=== PATIENT | female | born 1955 | race Caucasian/White ===

== ENCOUNTER 2016-08-15 08:20 | Observation (INO) | payer OTHER ==
[~2016-08-15] VITALS: Ht 152.4 cm; Wt 59.2 kg
[2016-08-15 08:28] VITALS: Ht 152.4 cm; Wt 59.2 kg
[2016-08-15] MEDS ORDERED: LEVO75TA5 PO (09:18)
[2016-08-15] MEDS ORDERED: FOLI-49 PO (09:18)
[2016-08-15] MEDS ORDERED: CALC500T91 PO (09:18)
[2016-08-15] MEDS ORDERED: NAPR-688 PO (09:19)
[2016-08-15] MEDS ORDERED: GABA300C16 PO (09:19)
[2016-08-15] MEDS ORDERED: OMEP20CA16 PO (09:20)
[2016-08-15] MEDS ORDERED: ALEN70TA30 PO (09:20)
[2016-08-15] MEDS ORDERED: HYD25 PO (09:20)
--- NOTE | 2016-08-15 09:22 | RADRPT ---
PROCEDURE: Chest Radiograph. CLINICAL INDICATION: Abdominal pain TECHNIQUE: Single frontal chest radiograph. COMPARISON: None available FINDINGS: The cardiomediastinal silhouette is within normal limits. No infiltrate or effusion is seen. Th e bones are intact. IMPRESSION: 1. Unremarkable chest radiograph. RPTAT: KK .Ashok Madrid MD, MD Date Time Electronically viewed and signed by .Ashok Madrid MD, on 08/15/2016 09:22 .B/
[2016-08-15 09:35] LABS: ADD UMIC YES; URINE BILIRUBIN (Dip) NEGATIVE (NEGATIVE); URINE BLOOD (Dip) 2+ (NEGATIVE); URINE COLOR LT. YELLOW (YELLOW); URINE GLUCOSE (Dip) NEGATIVE (NEGATIVE); URINE KETONES (Dip) NEGATIVE (NEGATIVE); URINE LEUKOCYTE ESTERASE (Dip) NEGATIVE (NEGATIVE); URINE NITRITE (Dip) NEGATIVE (NEGATIVE); URINE TOTAL PROTEIN (Dip) NEGATIVE (NEGATIVE); URINE UROBILINOGEN (Dip) 0.2 E.U./dL (0.1-1.0)
[2016-08-15 09:39] LABS: BASOPHILS % 0.5 % (0.0-2.0); EOSINOPHILS # 0.1 10^3/ul (0.0-0.5); HEMATOCRIT 32.1 % (37.0-47.0); HEMOGLOBIN 10.6 g/dl (12.0-16.0); LYMPHOCYTES % 12.5 % (15.0-51.0); MEAN CORPUSCULAR HEMOGLOBIN 26.2 pg (29.0-33.0); MEAN CORPUSCULAR HGB CONC 32.9 g/dl (32.0-37.0); MEAN CORPUSCULAR VOLUME 79.6 fl (82.0-101.0); MEAN PLATELET VOLUME 8.3 fl (7.4-10.4); MONOCYTE # 0.5 10^3/ul (0.3-0.9); MONOCYTES % 6.7 % (0.0-11.0); NEUTROPHIL # 6.5 10^3/ul (1.6-7.5); NEUTROPHILS % 79.3 % (39.0-77.0); PLATELET COUNT 354 10^3/UL (140-440); RED BLOOD COUNT 4.04 10^6/ul (4.20-5.40); RED CELL DISTRIBUTION WIDTH 15.4 % (11.5-14.5); UNCORRECTED WBC 8.1 10^3/ul (4.8-10.8); WHITE BLOOD COUNT 8.1 10^3/ul (4.8-10.8)
[2016-08-15 09:45] LABS: CONDITION 1; LH ANALYZER COMMENTS 1
[2016-08-15 09:56] LABS: ALBUMIN 3.8 g/dl (3.3-4.9); CHLORIDE 104 mmol/L (97-110)
[2016-08-15 09:57] LABS: POTASSIUM 4.1 mmol/L (3.5-5.1); SODIUM 143 mmol/L (135-144)
[2016-08-15 09:59] LABS: ALBUMIN/GLOBULIN RATIO 0.84; ALKALINE PHOSPHATASE 94 IU/L (42-121); ANION GAP 17 (8-16); ASPARTATE AMINO TRANSFERASE 19 IU/L (15-46); BILIRUBIN,INDIRECT 0.1 mg/dl (0-1.1); BILIRUBIN,TOTAL 0.1 mg/dl (0.2-1.3); CARBON DIOXIDE 26 mmol/L (21-31); SQUAMOUS EPITHELIAL CELL,UR FEW; TOTAL PROTEIN 8.3 g/dl (6.1-8.1)
[2016-08-15 10:00] LABS: ALANINE AMINOTRANSFERASE 16 IU/L (13-69); BLOOD UREA NITROGEN 12 mg/dl (7-20); CALCIUM 9.5 mg/dl (8.4-10.2); GLUCOSE 116 mg/dl (70-220)
--- NOTE | 2016-08-15 10:08 | RADRPT ---
PROCEDURE: CT Abdomen and Pelvis without contrast. CLINICAL INDICATION: Abdominal pain TECHNIQUE: CT of the abdomen and pelvis was performed on a multi-detector scanner without IV contr ast. Coronal and sagittal images were reformatted from the axial data set. One or more of the foll owing dose reduction techniques were used: automated exposure control, adjustment of the mA and/or kV according to patient size, use of iterative reconstruction technique. CTDI = 7.95 mGy. DLP = 457 .56 mGy-cm. COMPARISON: None. FINDINGS: CT abdomen: The lung bases are clear. The heart size is normal. Small to mild amount of pericardial fluid is n oted. Liver, gallbladder, biliary tree, pancreas, spleen, adrenal glands and kidneys are unremarkab le. No urolithiasis or obstructive uropathy is identified. The stomach is grossly unremarkable. The aorta is of normal caliber. Aortic vascular calcifications are present. There is no retroperit hussein lymphadenopathy. The aubree hepatis region is clear. CT pelvis: No bowel obstruction, free intraperitoneal air or abscess is identified. Scattered colonic divertic aurelia are seen without diverticulitis. The appendix is well visualized and normal. There is no colit is. Urinary bladder is grossly unremarkable. Uterus is surgically absent. No pelvic mass, free fl uid or lymphadenopathy is identified. The surrounding osseous structures are remarkable for mild degenerative spondylosis of the spine. N o osteolytic or osteoblastic lesion is detected. IMPRESSION: 1. Nonspecific small to mild amount of pericardial fluid is present. 2. Scattered aortoiliac atherosclerotic calcifications are noted. 3. Scattered colonic diverticula are seen without diverticulitis. 4. Uterus is surgically absent. 5. No mass, lymphadenopathy, or focal acute inflammatory process is identified. RPTAT: EE .Augusto Kulkarni MD, MD Date Time Electronically viewed and signed by .Augusto Kulkarni MD, MD on 08/15/2016 10:07 .R/
[2016-08-15 10:16] LABS: TROPONIN-I < 0.010 ng/ml (0.00-0.12)
--- NOTE | 2016-08-15 11:06 | ERA ---
ER Documentation Chief Complaint Date/Time DATE: 08/15/16 TIME: 11:03 Chief Complaint ABDOMIONAL PAIN X 2 DAYS; NAUSEA HPI 61-year-old female presents to the emergency department for evaluation of abdominal pain. Patient is non-Georgian speaking. My history is mostly available for my conversations with her son who is a local physician at the hospital. Patient presents with approximately 2-3 days a nonspecific, visceral abdominal discomfort. She apparently has had similar type discomfort for some time now and has been losing weight. Over the last 2 days her nausea is gotten somewhat worse and she has been unable to tolerate oral intake. She has had no fevers chills, vomiting or diarrhea. She reports no urinary or gynecologic symptoms. ROS All systems reviewed and are negative except as per history of present illness. Medications Home Meds Reported Medications Alendronate Sodium* (Fosamax*) 70 Mg Tablet, 70 MG PO Q7D, #4 TAB 08/15/16 Omeprazole* (Omeprazole*) 20 Mg Capsule.dr, 20 MG PO AC BREAKFAST, #30 CAP 08/15/16 Hydrochlorothiazide* (Hydrochlorothiazide*) 25 Mg Tab, 25 MG PO DAILY, #30 TAB 08/15/16 Gabapentin* (Gabapentin*) 300 Mg Capsule, 300 MG PO QHS, #60 CAP 08/15/16 Naproxen* (Naproxen*) 500 Mg Tablet, 550 MG PO BID Y for PAIN, TAB 08/15/16 Levothyroxine Sodium* (Levothyroxine Sodium*) 75 Mcg Tablet, 75 MCG PO BEFORE BREAKFAST, #30 TAB 08/15/16 Folic Acid* (Folic Acid*) 1 Mg Tablet, 1 MG PO DAILY, TAB 08/15/16 Calcium Carbonate ([id number]) 500 Mg Tablet, 500 MG PO BID, TAB 08/15/16 Allergies Allergies: Coded Allergies: No Known Allergy (Unverified , 08/15/16) PMhx/Soc Medical and Surgical Hx: Unable to obtain Hx Alcohol Use: No Hx Substance Use: No Hx Tobacco Use: No Smoking Status: Never smoker FmHx Noncontributory for chief complaint Physical Exam Vitals Vital Signs Date Time Temp Pulse Resp B/P Pulse Ox O2 Delivery O2 Flow Rate FiO2 08/15/16 08:28 98.4 102 19 139/74 100 Physical Exam GENERAL: Patient is chronically ill-appearing but in no acute distress HEENT: Pupils equal, round, and reactive to light. EOMI. There is no scleral icterus. NECK: C-spine is soft and supple, there is no meningismus. There is no cervical lymphadenopathy. LUNGS: Clear to auscultation bilaterally. There are no rales, wheezes or rhonchi. HEART: Regular rate and rhythm, no murmurs, clicks, rubs or gallops. ABDOMEN: Soft, non-tender, non-distended. There are bowel sounds in all four quadrants. No rebound or guarding. EXTREMITIES: There is no peripheral cyanosis or edema. No focal swelling or erythema. NEURO: The patient moves all four extremities with 5/5 strength. Cranial nerves II - XII are intact. Normal gait. Alert and oriented SKIN: There is no apparent rash or petechiae. HEME/LYMPHATIC: There is no evidence of excessive bruising or lymphedema. PSYCHIATRIC: The patient does not appear anxious or depressed. Result Diagram: 08/15/1692908/15/1630 Results 24 hrs Laboratory Tests Test 08/15/16 09:30 Alanine Aminotransferase (ALT/SGPT) 16IU/L Albumin 3.8g/dl Albumin/Globulin Ratio 0.84 Alkaline Phosphatase 94IU/L Anion Gap 17 Aspartate Amino Transf (AST/SGOT) 19IU/L Basophils # 0.010^3/ul Basophils % 0.5% Blood Morphology Comment Blood Urea Nitrogen 12mg/dl Calcium Level 9.5mg/dl Carbon Dioxide Level 26mmol/L Chloride Level 104mmol/L Creatinine 0.60mg/dl Direct Bilirubin 0.00mg/dl Eosinophils # 0.110^3/ul Eosinophils % 1.0% Globulin 4.50g/dl Glucose Level 116mg/dl Hematocrit 32.1% Hemoglobin 10.6g/dl Indirect Bilirubin 0.1mg/dl Lipase 92U/L Lymphocytes # 1.010^3/ul Lymphocytes % 12.5% Mean Corpuscular Hemoglobin 26.2pg Mean Corpuscular Hemoglobin Concent 32.9g/dl Mean Corpuscular Volume 79.6fl Mean Platelet Volume 8.3fl Monocytes # 0.510^3/ul Monocytes % 6.7% Neutrophils # 6.510^3/ul Neutrophils % 79.3% Nucleated Red Blood Cells # 0.010^3/ul Nucleated Red Blood Cells % 0.0/100WBC Platelet Count 42404^3/UL Potassium Level 4.1mmol/L Red Blood Count 4.0410^6/ul Red Cell Distribution Width 15.4% Sodium Level 143mmol/L Total Bilirubin 0.1mg/dl Total Protein 8.3g/dl Troponin I < 0.010ng/ml Urine Bilirubin NEGATIVE Urine Clarity CLEAR Urine Color LT. YELLOW Urine Glucose NEGATIVE% Urine Hemoglobin 2+ Urine Ketones NEGATIVE Urine Leukocyte Esterase NEGATIVE Urine Microscopic RBC 2-5/HPF Urine Microscopic WBC NONE SEEN/HPF Urine Nitrite NEGATIVE Urine Specific [place] 1.015 Urine Squamous Epithelial Cells FEW Urine Total Protein NEGATIVE Urine Urobilinogen 0.2 E.U./dL Urine pH 6.0 White Blood Count 8.110^3/ul Procedures/MDM Patient was taken to a room, seen and evaluated. Comfort measures were initiated. Diagnostic tests were ordered and reviewed. 3 LEAD RHYTHM STRIP: Normal sinus rhythm without ectopy EK lead EKG reviewed by myself: Normal Sinus Rhythm Normal [place] and intervals No ST elevation, depression, or T wave inversion Impression: Normal EKG RADIOLOGY: reviewed with the radiologist CONSULTATION: I spoke with the patient's son. Patient's insurance hospitalist was notified for admission REEVALUATION: Patient is remained stable in the emergency room MEDICAL DECISION MAKIN-year-old female presents the emergency department for nonspecific abdominal pain. Her diagnostic tests confirms a significant microcytic anemia I am concerned given her history that there may be an underlying malignancy. Patient will be admitted to the hospital for further observation diagnostic workup and monitoring. Departure Diagnosis: Primary Impression: Abdominal pain Additional Impression: Anemia PREET EISENBERG Aug 15, 2016 11:06
[2016-08-15] MEDS ORDERED: SOD CHLORIDE 0.9% 250 ML IV ONE (11:30)
[2016-08-15] MEDS ORDERED: BISACODYL 10 MG SUPP PR PRN (12:00)
[2016-08-15] MEDS ORDERED: MAGNESIUM HYDROXIDE 30ML CUP PO PRN (12:00)
[2016-08-15] MEDS ORDERED: NACL 0.9% 3 ML SYG IV SCH (12:00)
[2016-08-15] MEDS ORDERED: HYDROCODONE/APAP (5/325) TAB PO PRN (12:00)
[2016-08-15] MEDS ORDERED: ACETAMINOPHEN 325 MG TAB PO PRN (12:00)
[2016-08-15] MEDS ORDERED: ONDANSETRON 4 MG INJ IV PRN (12:00)
[2016-08-15] MEDS ORDERED: morphine 2 MG INJ IV PRN (12:00)
[2016-08-15] MEDS ORDERED: DOCUSATE SODIUM 100 MG CAP PO PRN (12:00)
[2016-08-15 14:20] LABS: INR 1.12; PROTIME 14.4 Sec (12.2-14.2); PT RATIO 1.1
[2016-08-15 14:25] LABS: IRON 24 ug/dl (35-150)
[2016-08-15 14:35] LABS: TOTAL IRON BINDING CAPACITY 364 ug/dl (241-421)
[2016-08-15 15:02] LABS: FERRITIN 45.6 ng/ml (11.1-264.0)
[2016-08-15 16:00] LABS: THYROID STIMULATING HORMONE 2.98 MIU/L (0.465-4.680)
[2016-08-15] MEDS: SOD CHLORIDE 0.9% 1,000 ML IV SCH ×2 (16:16→21:34)
[2016-08-15] MEDS ORDERED: BISACODYL (EC) 5 MG TAB PO ONE (17:00)
[2016-08-15] MEDS ORDERED: PEG/ELECTROLYTES 4L BTL PO ONE (18:00)
--- NOTE | 2016-08-15 18:16 | RADRPT ---
PROCEDURE: CT cervical spine without contrast. CLINICAL INDICATION: Neck pain, rheumatoid arthritis TECHNIQUE: CT of the cervical spine without contrast was performed on a multidetector CT scanner, w ith multiplanar reformats. One or more of the following dose reduction techniques were used: Automa radha exposure control, adjustment in mA and / or kV according to patient size, use of iterative recon structive technique. CTDIvol = 17.4 mGy and DLP = 326.7 mGy-cm. COMPARISON: None available. FINDINGS: No fracture or dislocation is identified. There is straightening of the lordosis of the cervical sp ine. Alignment is intact. The vertebral bodies are maintained in height. There are degenerative changes at the atlantoaxial joints, greater anteriorly without erosive changes, significant pannus a djacent to the odontoid process, or widening of the atlantodental interval. Anterior spondylosis is also seen at C4-5 and C5-6. Noted are carotid atherosclerotic calcifications, as well as left apic al calcification with adjacent irregular opacity, likely post inflammatory/granulomatous. C2-3: The disc is maintained in height. There is a mild posterior disk osteophyte without central c anal stenosis identified. There is mild facet arthropathy without foraminal narrowing identified. C3-4: The disc is maintained in height. There is a mild posterior disk osteophyte with mild central canal stenosis. There is mild facet arthropathy without foraminal narrowing identified C4-5: The disc is maintained in height. There is a mild posterior disk osteophyte with mild central canal stenosis. There is mild facet arthropathy without foraminal narrowing identified. C5-6: The disc is maintained in height. There is mild posterior disk osteophyte with mild central c anal stenosis. There is mild facet arthropathy without foraminal narrowing identified. C6-7: The disc is maintained in height. There is a mild posterior disk osteophyte with mild centra l canal stenosis. There is mild facet arthropathy without foraminal narrowing identified. C7-T1: The disc is maintained in height. No disk bulge or herniation is seen. There is mild facet arthropathy. There is no central canal stenosis or foraminal narrowing. IMPRESSION: 1. Cervical spondylosis, without fracture/malalignment identified. 2. Multilevel mild central canal stenosis, outlined in detail above. RPTAT: VV .Pawan Gutierrez MD, MD Date Time Electronically viewed and signed by .Pawan Gutierrez MD, on 08/15/2016 18:16 .O/
--- NOTE | 2016-08-15 18:24 | HP ---
DATE OF ADMISSION: 08/15/2016 CHIEF COMPLAINT ON ADMISSION: Generalized weakness and weight loss. HISTORY OF PRESENT ILLNESS: This is a 61-year-old female with a history of rheumatoid arthritis, hy pothyroidism, status post total hysterectomy for uterine bleeding and status post thyroidectomy for multinodular goiter. Has been on Synthroid, who presented to the emergency department brought in by family with reported worsening generalized weakness and recent significant weight loss. The patien t herself is not fluently Moroccan speaking, but the history is obtained from her son and her . The patient does have rheumatoid arthritis. She has been battling joint pain. Recently, however , for the past 2 months she was noted to have progressive weight loss up to 20 pounds. She has been having increased generalized weakness and according to the at the bedside over the past few days. She has been significantly weak with decreased exercise tolerance. No fevers reported. No chest pain or shortness of breath; however, the patient again has decreased exercise tolerance. She has joint pain at most of her joints at this point. She is also complaining of neck pain with pain from the base of her neck going up the occipital area of her head and up to the frontal area. She also complains of some low back pain. She denies any nausea and vomiting, but does report decreased appetite. She was noted in the ER to have some macrocytic anemia. Her hemoglobin is at 10, howeve r, her MCV is in the 70s. She has been admitted to a medical/surgical bed on observation for gastro enterology evaluation in setting of macrocytic anemia and significant weight loss. I will also cont act rheumatology in order to see if the patient needs additional workup, but from the rheumatology s tandpoint done while inpatient and further recommendation. CAT scan of her neck is also ordered giv en her significant neck pain and decreased range of motion at the neck. ALLERGIES: NO KNOWN ALLERGIES. PAST MEDICAL HISTORY: 1. Rheumatoid arthritis. 2. Hypothyroidism status post total thyroidectomy for multinodular goiter. 3. Osteopenia. 4. Previous history of abnormal uterine bleeding, status post hysterectomy. PAST SURGICAL HISTORY: 1. Status post hysterectomy remotely. 2. Status post thyroidectomy remotely. FAMILY HISTORY: None. SOCIAL HISTORY: The patient does not smoke or drink alcohol. She lives with family. REVIEW OF SYSTEMS: Most of the assessment was done through the patient's son and . REVIEW OF SYSTEMS: Limited to the patient, but she is able to verbalize that she has pain at her noreen ints, both the small one the larger ones, and also significant neck pain with decreased range of mot ion. OUTPATIENT MEDICATIONS: 1. Gabapentin 300 mg p.o. at bedtime. 2. Naprosyn 550 mg p.o. b.i.d. 3. Calcium carbonate 500 mg p.o. b.i.d. 4. Hydrochlorothiazide 25 mg p.o. daily. 5. Omeprazole 20 mg p.o. daily. 6. Levothyroxine 75 mcg daily. 7. Folic acid 1 mg p.o. daily. 8. Fosamax 70 mg p.o. weekly. PHYSICAL EXAMINATION: VITAL SIGNS: Temperature is 98.4, heart rate of 91, respiratory rate 16, blood pressure 135/70. Th e patient is saturating 99% on room air. GENERAL: She is alert. She is oriented x4. She is primarily non-Moroccan speaking, but does unders tand questions and is able to answer some of the questions. is at the bedside is helping wi th translation. HEENT: Pupils are equally round and reactive to light. Extraocular muscles are intact. Anicteric sclerae, slightly pale. NECK: No JVD noted. No thyromegaly noted. She is status post thyroidectomy. HEART: Regular rate and rhythm. No murmur, rubs, or gallops. LUNGS: Clear to auscultation bilaterally. ABDOMEN: Soft, nontender, nondistended. Bowel sounds are present. EXTREMITIES: No edema, clubbing or cyanosis; however, the patient does have some of her joints are swollen, both on her feet, her ankle bilaterally. Some of her knuckles on her hands, wrist, elbow a nd on her spine exam, she does have tenderness to palpation along the cervical spine. She has decre ased range of motion while turning her head. She also complains of some tenderness on her lumbar sp ine area. NEUROLOGIC: Muscle strength is 5/5 upper and lower extremity, but exam is slightly limited by joint pain. LABORATORY DATA: White blood cell count is 8.1, hemoglobin 10.6, hematocrit 32.1, platelet count of 354. ESR came back at 95. Chemistry with a sodium of 143, potassium 4.1, chloride 104, bicarbonat e 26, BUN is 12, creatinine 0.60, glucose of 116, calcium 9.5, total bilirubin 0.1, AST 19, ALT 16. Troponin less than 0.010, total protein 8.3, albumin 3.8, lipase is 92. TSH 2.98, free T4 is pendi ng. Iron study with iron level is low at 24. TIBC of 364. Iron saturation 7, ferritin 45.5. INR is 1.12, PTT 34, PT 14.4. Urinalysis is grossly negative. EKG did show ELECTROCARDIOGRAM: Normal sinus rhythm, no acute ST or T-wave abnormalities. Echocardiogram is pending. RADIOLOGICAL DATA: Chest x-ray shows no infiltrate or effusion. Bones are intact. Cardiac silhoue tte is actually unremarkable. CAT scan of the abdomen and pelvis is showing nonspecific small to mild amount of pericardial fluid, scattered aortoiliac atherosclerotic calcifications, scattered colonic diverticula without divertic ulitis and status post hysterectomy, no masses, adenopathy, or acute inflammatory process identified . ASSESSMENT AND PLAN: This is a 61-year-old female with: 1. Generalized weakness, microcytic anemia, and significant weight loss over the past [address] Pavel Whittaker has been consulted from gastroenterology for a GI workup. Likely patient will need EGD, co lonoscopy as part of the workup. She is definitely iron deficient. Therefore, I will discussed wit h Dr. Whittaker. Also I will discuss with rheumatology. She may need IV iron supplementation. Ling garette to monitor H and H and given her history of rheumatoid arthritis I will discuss with rheumatolog y additional workup they would like us to do while the patient is inpatient. 2. Multiple joint pain along with neck pain. CAT scan of the C-spine is pending. ESR came back at 95. Again, patient with known other autoimmune arthritis. Will discuss with rheumatology addition al workup. Followup CT cervical spine results. I will check rheumatoid factor, also. 3. Hypothyroidism. Continue Synthroid. TSH is within normal, free T4 is pending. 4. Hypertension. The patient has been on hydrochlorothiazide. I will be holding it currently. We will hydrate her in setting of generalized weakness and revaluate her blood pressure. 5. Prophylaxis: Sequential compression devices to lower extremity for DVT prophylaxis, Protonix fo r GI prophylaxis. DISPOSITION: Follow up CT cervical spine results and gastroenterology recommendations. Also follow up on additional recommendations from rheumatology after we discussed the case. Dictated By: CELIA COOPER MD NK/CAITY Conf#: [id number] DID#: [id number] CC: CELIA COOPER MD;*EndCC*
[2016-08-15 19:25] VITALS: BP 135/65; RESP 20
[2016-08-15] MEDS: GABAPENTIN 300 MG CAP PO SCH (21:00)
--- NOTE | 2016-08-15 21:14 | CONS ---
DATE OF ADMISSION: 08/15/2016 DATE OF CONSULTATION: Dear Dr. Cooper: HISTORY OF PRESENT ILLNESS: I thank you for asking me to evaluate your patient. She is a 61-year-o ld female with a history of rheumatoid arthritis, hypothyroidism, status post hysterectomy for dysfu nctional uterine bleeding, status post thyroidectomy for multiple nodular goiter on Synthroid came t o the emergency room for generalized weakness and significant weight loss. The patient lost almost 20 pounds within the last 2 months and she has become dysfunctional. The patient is unable to ambul ate much and she feels profoundly weak. She has a vague history of abdominal discomfort for the las t few weeks. The patient has been taking Aleve for her arthritis for the last 1-1/2 to 2 months and she was on methotrexate injection also. No history of any gross GI bleeding, no melena, no hematoc hezia. Had a history of heartburn in the past and also nausea. ALLERGIES: NO KNOWN ALLERGIES. PAST MEDICAL HISTORY: Rheumatoid arthritis, hypothyroidism after thyroidectomy, osteopenia, hystere ctomy. PAST SURGICAL HISTORY: Hysterectomy and thyroidectomy. FAMILY HISTORY: None. SOCIAL HISTORY: Does not smoke or drink. REVIEW OF SYSTEMS: Otherwise negative. MEDICATIONS: All reviewed. She was on: 1. Gabapentin. 2. Naproxen. 3. Hydrochlorothiazide. 4. Omeprazole. 5. Levothyroxine. 6. Fosamax. PHYSICAL EXAMINATION: GENERAL: Alert, awake, not in distress. VITAL SIGNS: Stable. HEENT: Unremarkable. NECK: Supple. No thyromegaly, no lymphadenopathy. CARDIOVASCULAR: No murmur, gallop, or click. LUNGS: Clear. ABDOMEN: Benign. EXTREMITIES: No pedal edema. Homans sign negative. No clubbing, no cyanosis. NEUROLOGIC: Grossly within normal limits. MUSCULOSKELETAL: The patient has swollen proximal phalangeal joints of both hands. LABORATORY DATA: Her hematocrit was 32. ESR was elevated at 95. CMP was grossly within normal [place] its. MCV was low 79.6. Iron saturation was 7, ferritin level was 45. IMPRESSION: 1. Anemia, which is of mixed etiology, both iron deficiency and of anemia of chronic disease. 2. Weight loss of 20 pounds. 3. Vague abdominal discomfort. 4. Rheumatoid arthritis. 5. Status post hysterectomy. 6. Osteoporosis. 7. Hypothyroidism. 8. Mild hypertension. PLAN: At this point, is to proceed with EGD and colonoscopy to identify the cause of her anemia and also GI blood loss and abdominal discomfort. Rheumatology workup as per Dr. Cooper. Will continue a ll the medication other than NSAIDS. Once again, thank you for your referral. Dictated By: CRISTI GALAVIZ/NTS Conf#: [id number] DID#: [id number] CC: CELIA COOPER MD;*EndCC*
[2016-08-15] MEDS: CALCIUM CARBONATE 1.25 GM TAB PO SCH (21:17)
--- NOTE | 2016-08-15 22:26 | RADRPT ---
Echocardiogram Report Patient Name: MINDY SHUKLA Gender: Female Date: 1955 Study Date: 15-Aug-2016 Sales Advisor: Vishal Bone RDCS Location: [facility] Ref. Physician: REGINO COOPER Quality: Good Procedures: Transthoracic echocardiogram with complete 2D, M-Mode, and doppler examination. Indications: Evaluate Left Ventricular function. Pericardial Effusion. 2D/M Mode Doppler Measurement Value Normal Ranges Measurement Value Normal Ranges LVIDd 2D 4.2 3.5 - 5.6 cm AV Peak Morgan 1.7 m/sec LVIDs 2D 2.3 2.1 - 4.1 cm AV Peak PG 12.0 mmHg FS 2D 45.6 % LVOT Peak Morgan 1.2 m/sec LVPWd 2D 0.9 0.6 - 1.1 cm LVOT Peak PG 5.0 mmHg IVSd 2D 0.8 0.6 - 1.1 cm MV E Peak Morgan 0.9 m/sec IVS/LVPW 2D 1.0 MV A Peak Morgan 1.1 m/sec AoR Diam 2D 2.2 2.0 - 3.7 cm MV E/A 0.8 LA/Ao 2D 1 0 - 1 MV Decel Time 137 msec EDV 2D 74.6 cm3 MV E/A 0.8 ESV 2D 12.0 cm3 TR Peak Morgan 2.2 m/sec LA Dimen 2D 3.2 2.3 - 4.0 cm TR Peak PG 20.0 mmHg RVSP 23.0 mmHg Findings Left Ventricle: Normal left ventricular systolic function. Normal left ventricular cavity size. Normal left ventricular wall thickness. Ejection fraction is visually estimated at 65 %. Tissue Doppler/Mitral Doppler indices are consistent with impaired relaxation (Stage I diastolic dysfunction). Right Ventricle: Normal right ventricular size. Normal right ventricular systolic function. Left Atrium: The left atrium is normal in size. Right Atrium: The right atrium is normal in size. Mitral Valve: Mitral valve leaflets appear mildly thickened. Mild mitral annular calcification. Mild mitral valve regurgitation. Aortic Valve: Normal appearance of the aortic valve. No significant aortic stenosis or insufficiency. Tricuspid Valve: Normal appearance of the tricuspid valve. Estimated peak PA systolic pressure 23 mmHg. There is trace tricuspid regurgitation. Pericardium: Small pericardial effusion. Aorta: Normal aortic root. IVC: Normal size and normal respiratory collapse consistent with normal right atrial pressure. Conclusions Normal left ventricular systolic function. Normal left ventricular cavity size. Normal left ventricular wall thickness. Ejection fraction is visually estimated at 65 %. Tissue Doppler/Mitral Doppler indices are consistent with impaired relaxation (Stage I diastolic dysfunction). Normal right ventricular size. Normal right ventricular systolic function. The left atrium is normal in size. The right atrium is normal in size. Mild mitral valve regurgitation. No significant aortic stenosis or insufficiency. Estimated peak PA systolic pressure 23 mmHg. There is trace tricuspid regurgitation. Small pericardial effusion. Electronically Signed By: Gerald Coelho 15-Aug-2016 22:25:48 -0800 Patient Name: MINDY SHUKLA Study Date: 15-Aug-[id number]
[2016-08-16] VITALS (8 sets, daily range): BP systolic 95–154; BP diastolic 51–69; PULSE 86–91; RESP 16–20
[2016-08-16] MEDS: SOD CHLORIDE 0.9% 1,000 ML IV SCH ×3 (03:25→18:41)
[2016-08-16] MEDS: PANTOPRAZOLE (EC) 40 MG TAB PO SCH (06:00)
[2016-08-16 06:02] LABS: BASOPHILS % 0.6 % (0.0-2.0); EOSINOPHILS # 0.2 10^3/ul (0.0-0.5); EOSINOPHILS % 2.9 % (0.0-7.0); HEMATOCRIT 30.9 % (37.0-47.0); HEMOGLOBIN 10.1 g/dl (12.0-16.0); LYMPHOCYTES # 1.3 10^3/ul (0.8-2.9); LYMPHOCYTES % 17.9 % (15.0-51.0); MEAN CORPUSCULAR HEMOGLOBIN 26.1 pg (29.0-33.0); MEAN CORPUSCULAR HGB CONC 32.6 g/dl (32.0-37.0); MEAN CORPUSCULAR VOLUME 80.1 fl (82.0-101.0); MEAN PLATELET VOLUME 8.5 fl (7.4-10.4); MONOCYTE # 0.5 10^3/ul (0.3-0.9); MONOCYTES % 7.1 % (0.0-11.0); NEUTROPHIL # 5.2 10^3/ul (1.6-7.5); NEUTROPHILS % 71.5 % (39.0-77.0); PLATELET COUNT 309 10^3/UL (140-440); RED BLOOD COUNT 3.86 10^6/ul (4.20-5.40); RED CELL DISTRIBUTION WIDTH 15.4 % (11.5-14.5); UNCORRECTED WBC 7.3 10^3/ul (4.8-10.8); WHITE BLOOD COUNT 7.3 10^3/ul (4.8-10.8)
[2016-08-16 06:08] LABS: CONDITION 1; LH ANALYZER COMMENTS 1
[2016-08-16 06:10] LABS: ALBUMIN 3.4 g/dl (3.3-4.9)
[2016-08-16 06:13] LABS: ALBUMIN/GLOBULIN RATIO 0.8; BILIRUBIN,INDIRECT 0.1 mg/dl (0-1.1); BILIRUBIN,TOTAL 0.1 mg/dl (0.2-1.3); CREATININE 0.6 mg/dl (0.44-1.00); TOTAL PROTEIN 7.6 g/dl (6.1-8.1)
[2016-08-16 06:14] LABS: CALCIUM 9.1 mg/dl (8.4-10.2); MAGNESIUM 1.9 mg/dl (1.7-2.5); PHOSPHORUS 3.7 mg/dl (2.5-4.9)
[2016-08-16] MEDS: LEVOTHYROXINE 75 MCG TAB PO SCH (07:00)
[2016-08-16] MEDS: FOLIC ACID 1 MG TAB PO SCH (09:00)
[2016-08-16] MEDS: CALCIUM CARBONATE 1.25 GM TAB PO SCH ×2 (09:00→21:39)
[2016-08-16] MEDS ORDERED: PROPOFOL 20 ML ONE (12:00)
[2016-08-16] MEDS ORDERED: LIDOCAINE 2% (SDV) 5 ML INJ ONE (12:00)
[2016-08-16] MEDS ORDERED: MIDAZOLAM 1 MG/ML 2 ML INJ ONE (12:01)
[2016-08-16] MEDS ORDERED: MEPERIDINE 25 MG INJ IV PRN (12:30)
[2016-08-16] MEDS ORDERED: FENTAnyl 50 MCG/ML VIAL IV PRN (12:30)
[2016-08-16] MEDS ORDERED: DIPHENHYDRAMINE 50 MG INJ IV PRN (12:30)
[2016-08-16] MEDS ORDERED: METOCLOPRAMIDE 10 MG INJ IV PRN (12:30)
[2016-08-16] MEDS ORDERED: ONDANSETRON 4 MG INJ IV PRN (12:30)
--- NOTE | 2016-08-16 14:43 | PN ---
Date/Time of Note Date/Time of Note DATE: 08/16/16 TIME: 13:38 Assessment/Plan VTE Prophylaxis VTE Prophylaxis Intervention: SCD's Lines/Catheters IV Catheter Type (from Nrs): Peripheral IV Urinary Cath still in place: No Assessment/Plan Assessment/Plan 61-year-old female with: 1. Generalized weakness, microcytic anemia, and significant weight loss over the past [address] Whittaker's assistance S/p EGD and colonoscopy and ileal ulcer bx pending IV FE today and tomorrow D/c plan tomorrow if remains stable I have discussed case with Dr Rollins rheumatology and placed his consult note in chart, he will see patient as outpatient as all interventions he can offer form rheumatology standpoint are outpatient. 2. Multiple joint pain along with neck pain. CAT scan of the C-spine with no acute findings ESR 95 likely related to RA per Rheumatology. RF sent out 3. Hypothyroidism. Continue Synthroid. TFTS wnl. 4. Hypertension. off HCTZ while on IVF post colo prep Will resume at discharge if needed. Prophylaxis: Sequential compression devices to lower extremity for DVT prophylaxis, Protonix for GI prophylaxis. DISPOSITION: F/u pathology and IV fe today and tomorrow with d/c plan home tomorrow. Subjective 24 Hr Interval Summary Free Text/Dictation Patient doing well post EGD and colonoscopy this AM Awaiting final report Cervical spine CT with no acute findings Patient with no complaints this AM and labs pending IV fe ordered Ambulate Exam/Review of Systems Vital Signs Vitals Vital Signs Date Time Temp Pulse Resp B/P Pulse Ox O2 Delivery O2 Flow Rate FiO2 08/16/16 13:00 86 16 95/59 99 Room Air 08/16/16 12:39 98.0 Intake and Output 08/15/16 08/15/16 08/16/16 15:00 23:00 07:00 Intake Total 650 ml 1330 ml Balance 650 ml 1330 ml Exam Constitutional: alert, oriented, well developed Respiratory: clear to auscultation, normal air movement Cardiovascular: nl pulses, regular rate and rhythm Gastrointestinal: non-tender, soft Musculoskeletal: nl extremities to inspection Extremities: normal pulses, other (no edema, clubbing or cyanosis ) Neurological: PETROL TANKER DRIVER II-XII intact, nl mental status, nl speech, nl strength Results Result Diagram: 1/11/17 0530 1/11/17 0530 Results 24 hrs Laboratory Tests Test 08/15/16 17:00 08/16/16 05:30 Free Thyroxine 1.79 Alanine Aminotransferase (ALT/SGPT) 14 Albumin 3.4 Albumin/Globulin Ratio 0.80 Alkaline Phosphatase 85 Anion Gap 16 Aspartate Amino Transf (AST/SGOT) 14 L Basophils # 0.0 Basophils % 0.6 Blood Morphology Comment Blood Urea Nitrogen 8 Calcium Level 9.1 Carbon Dioxide Level 24 Chloride Level 108 Creatinine 0.60 Direct Bilirubin 0.00 Eosinophils # 0.2 Eosinophils % 2.9 Globulin 4.20 H Glucose Level 98 Hematocrit 30.9 L Hemoglobin 10.1 L Indirect Bilirubin 0.1 Lymphocytes # 1.3 Lymphocytes % 17.9 Magnesium Level 1.9 Mean Corpuscular Hemoglobin 26.1 L Mean Corpuscular Hemoglobin Concent 32.6 Mean Corpuscular Volume 80.1 L Mean Platelet Volume 8.5 Monocytes # 0.5 Monocytes % 7.1 Neutrophils # 5.2 Neutrophils % 71.5 Nucleated Red Blood Cells # 0.0 Nucleated Red Blood Cells % 0.0 Phosphorus Level 3.7 Platelet Count 309 Potassium Level 4.0 Red Blood Count 3.86 L Red Cell Distribution Width 15.4 H Sodium Level 144 Total Bilirubin 0.1 L Total Protein 7.6 White Blood Count 7.3 Medications Medications Current Medications Sodium Chloride (NS) 1,000 ml @ 100 mls/hr Q10H IV Last administered on t 03:25; Admin Dose 100 MLS/HR; Start 08/15/16 at 11:34 Ondansetron HCl (Zofran Inj) 4 mg Q6H PRN IV NAUSEA AND/OR VOMITING; Start 05/22 at 12:00 Acetaminophen (Tylenol Tab) 650 mg Q6H PRN PO PAIN LEVEL 1-3 OR FEVER; Start at 12:00 Acetaminophen/ Hydrocodone Bitart ([place] (5/325)) 1 tab Q6H PRN PO MODERATE PAIN LEVEL 4-6; Start 08/15/16 at 12:00 Morphine Sulfate (morphine) 2 mg Q4H PRN IV SEVERE PAIN LEVEL 7-10; Start 08/15 at 12:00 Docusate Sodium (Colace) 100 mg Q12H PRN PO CONSTIPATION; Start 08/15/16 at 12: 00 Magnesium Hydroxide (Milk Of Mag) 30 ml DAILY PRN PO CONSTIPATION; Start at 12:00 Bisacodyl (Dulcolax Supp) 10 mg DAILY PRN [place] CONSTIPATION; Start 08/15/16 at 12 :00 Pantoprazole (Protonix Tab) 40 mg DAILY@06 PO ; Start 08/16/16 at 06:00 Calcium Carbonate (Oyster Shell Calcium) 1.25 gm BID PO Last administered on t 21:17; Admin Dose 1.25 GM; Start 08/15/16 at 21:00 Folic Acid (Folic Acid) 1 mg DAILY PO ; Start 08/16/16 at 09:00 Gabapentin 300 mg 300 mg QHS PO ; Start 08/15/16 at 21:00 Ferric Sodium Gluconate Complex/ Sodium Chloride (Ferrlecit/NS) 110 ml @ 100 mls/hr Q24H IVPB ; Start 08/16/16 at 14:30; Stop 08/18/16 at 15:35 CELIA COOPER Aug 16, 2016 13:48
[2016-08-16] MEDS: SOD FERRIC GLUC COMPLX 125 MG in SOD CHLORIDE 0.9% 100 ML IVPB SCH (14:56)
[2016-08-16 17:32] LABS: RHEUMATOID FACTOR POSITIVE (NEGATIVE)
[2016-08-16 17:32] LABS: RETICULOCYTE COUNT % 0.9 % (0.5-1.5)
[2016-08-16 18:33] LABS: FOLATE 13.3 ng/ml (2.8-20.0)
[2016-08-16] MEDS: GABAPENTIN 300 MG CAP PO SCH (21:00)
[2016-08-17] MEDS: SOD CHLORIDE 0.9% 1,000 ML IV SCH ×2 (03:34→06:09)
[2016-08-17] MEDS: PANTOPRAZOLE (EC) 40 MG TAB PO SCH (06:09)
[2016-08-17] MEDS: LEVOTHYROXINE 75 MCG TAB PO SCH (06:09)
[2016-08-17 06:19] VITALS: BP 128/65; PULSE 85; RESP 18
--- NOTE | 2016-08-17 07:57 | GILP ---
DATE OF PROCEDURE: PROCEDURE: EGD with biopsy, colonoscopy and ____ with a biopsy. INDICATION: A 61-year-old female undergoing this procedure for weight loss of 20 pounds in 2 months , vague abdominal discomfort and anemia. The purpose is to evaluate upper GI tract, lower GI tract and rule out malignancy or peptic ulcer disease. Besides, the patient has been taking Aleve for her arthritis. INFORMED CONSENT: The risk of the procedure, related and unrelated complications, anesthetic risks, alternatives discussed and informed consent was obtained. DESCRIPTION OF PROCEDURE: The patient was brought to the GI lab, sedated by ____, optimal sedat ion, scope was passed with much ease into esophagus which was grossly within normal limits. Z line was at 34 cm. The Z line was regular. There was no Alfred esophagus. Stomach mucosa revealed mil d gastritis, chronic in nature. Three biopsies obtained to rule out H. pylori infection. Duodenum, first and second part including ampulla appeared normal. Two biopsies obtained, both from the bulb and the second part to rule out celiac sprue. Retroversion in the stomach appeared normal, maybe s mall hiatal hernia. Scope was straightened out and removed with good patient tolerance. IMPRESSION: 1. Normal esophagus, no varicose vein. 2. Z line at 34 cm and regular. 3. May be 1 to 2 cm hiatal hernia. 4. Chronic gastritis. 5. Normal bulb and second part of the duodenum including ampulla. 6. ____ two gastric inlet patch, ____ patch. Plan is to review histopathology for bacteria. COLONOSCOPY REPORT: She was turned around, scope was passed with much ease into rectum and advanced slowly through sigmoid, descending, transverse colon all the way into the cecum. Clarity was good. Cleanliness was good. No diverticula. No polyp identified. Entering into terminal ileum up to 1 foot was normal, went further down second foot and there was a linear ulcer identified. Two biops ies obtained to rule out celiac disease, cirrhosis, NSAID-induced enteropathy. I doubt TB is a caus e, but again that is in the differential diagnosis. Scope was then removed. The rest of the colon was thoroughly inspected. The patient tolerated the procedure very well. IMPRESSION: 1. Normal colon throughout. 2. Clarity and cleanliness was good. 3. In the terminal ileum, one foot proximal to ileocecal valve there was a linear ulcer, 2 biopsies obtained. PLAN: Review histopathology. The patient may need capsule endoscopy as an outpatient. If the biopsy is positive with the granulation tissue, addendum, then I will send for IBD serology a nd also stool for calprotectin. Also ____ on upper endoscopy, she had a 2 gastric inlets. Dictated By: CRISTI JUNG MD PJ/NTS Conf#: [id number] DID#: [id number] CC: CELIA COOPER MD; VIELKA SHUKLA MD;*EndCC*
[2016-08-17 08:13] VITALS: BP 129/66; RESP 20
[2016-08-17] MEDS: FOLIC ACID 1 MG TAB PO SCH (09:13)
[2016-08-17] MEDS: CALCIUM CARBONATE 1.25 GM TAB PO SCH (09:13)
[2016-08-17 11:38] LABS: BASOPHILS % 0.4 % (0.0-2.0); EOSINOPHILS # 0.2 10^3/ul (0.0-0.5); HEMATOCRIT 29.8 % (37.0-47.0); HEMOGLOBIN 9.7 g/dl (12.0-16.0); LYMPHOCYTES # 1.3 10^3/ul (0.8-2.9); LYMPHOCYTES % 18.9 % (15.0-51.0); MEAN CORPUSCULAR HEMOGLOBIN 25.9 pg (29.0-33.0); MEAN CORPUSCULAR HGB CONC 32.5 g/dl (32.0-37.0); MEAN CORPUSCULAR VOLUME 79.7 fl (82.0-101.0); MEAN PLATELET VOLUME 7.6 fl (7.4-10.4); MONOCYTE # 0.5 10^3/ul (0.3-0.9); NEUTROPHIL # 4.8 10^3/ul (1.6-7.5); NEUTROPHILS % 69.7 % (39.0-77.0); PLATELET COUNT 339 10^3/UL (140-440); RED BLOOD COUNT 3.73 10^6/ul (4.20-5.40); RED CELL DISTRIBUTION WIDTH 15.4 % (11.5-14.5); UNCORRECTED WBC 6.9 10^3/ul (4.8-10.8); WHITE BLOOD COUNT 6.9 10^3/ul (4.8-10.8)
[2016-08-17 11:42] LABS: CONDITION 1; LH ANALYZER COMMENTS 1
--- NOTE | 2016-08-17 12:16 | CONS ---
Date/Time of Note Date/Time of Note DATE: 08/17/16 TIME: 12:13 Assessment/Plan Assessment/Plan Additional Assessment/Plan IMPRESSION: 1. Anemia, which is of mixed etiology, both iron deficiency and of anemia of chronic disease. 2. Weight loss of 20 pounds. 3. Vague abdominal discomfort. 4. Rheumatoid arthritis. 5. Status post hysterectomy. 6. Osteoporosis. 7. Hypothyroidism. 8. Mild hypertension. 9.ileal ulcer,NSAID induced,r/o Crohn's disease Plan pt's poor retic response to anemia more in favor of anemia of chronic disease IBD serology capsule endoscopy as op rheumatology consult for active rheumatoid arthritis with high ESR Consultation Date/Type/Reason Admit Date/Time Aug 15, 2016 at 12:06 Initial Consult Date 24 HR Interval Summary Constitutional: improved, no complaints Exam/Review of Systems Vital Signs Vitals Vital Signs Date Time Temp Pulse Resp B/P Pulse Ox O2 Delivery O2 Flow Rate FiO2 08/17/16 08:13 99.1 20 129/66 99 08/17/16 06:19 85 08/16/16 13:00 Room Air Intake and Output 08/16/16 08/16/16 08/17/16 15:00 23:00 07:00 Intake Total 1420 ml 1400 ml Output Total 400 ml Balance 1020 ml 1400 ml Exam Constitutional: alert, oriented, well developed Psych: nl mood/affect, no complaints Head: atraumatic, normocephalic Eyes: EOMI, PERRL, nl conjunctiva, nl lids, nl sclera ENMT: nl external ears & nose, nl lips & teeth, nl nasal mucosa & septum Neck: non-tender, supple Respiratory: clear to auscultation, normal air movement Cardiovascular: nl pulses, regular rate and rhythm Gastrointestinal: nl liver, spleen, non-tender, soft Musculoskeletal: nl extremities to inspection, nl gait and stance Extremities: normal pulses Neurological: MAPPING PILOT II-XII intact, nl mental status, nl speech, nl strength Skin: nl turgor, No rash or lesions Lymph: nl lymph nodes Results Result Diagram: 08/17/16 1132 08/16/16 0530 Results 24 hrs Laboratory Tests Test 08/16/16 16:52 08/17/16 11:32 Absolute Reticulocyte Count 0.036 Folate 13.3 Percent Reticulocyte Count 0.9 Vitamin B12 Level 821 Basophils # 0.0 Basophils % 0.4 Blood Morphology Comment Eosinophils # 0.2 Eosinophils % 3.0 Hematocrit 29.8 L Hemoglobin 9.7 L Lymphocytes # 1.3 Lymphocytes % 18.9 Mean Corpuscular Hemoglobin 25.9 L Mean Corpuscular Hemoglobin Concent 32.5 Mean Corpuscular Volume 79.7 L Mean Platelet Volume 7.6 Monocytes # 0.5 Monocytes % 8.0 Neutrophils # 4.8 Neutrophils % 69.7 Nucleated Red Blood Cells # 0.0 Nucleated Red Blood Cells % 0.0 Platelet Count 339 Red Blood Count 3.73 L Red Cell Distribution Width 15.4 H White Blood Count 6.9 Medications Medications Current Medications Sodium Chloride (NS) 1,000 ml @ 100 mls/hr Q10H IV Last administered on 06:09; Admin Dose 100 MLS/HR; Start 08/15/16 at 11:34 Ondansetron HCl (Zofran Inj) 4 mg Q6H PRN IV NAUSEA AND/OR VOMITING; Start 05/22 at 12:00 Acetaminophen (Tylenol Tab) 650 mg Q6H PRN PO PAIN LEVEL 1-3 OR FEVER; Start at 12:00 Acetaminophen/ Hydrocodone Bitart ([place] (5/325)) 1 tab Q6H PRN PO MODERATE PAIN LEVEL 4-6; Start 08/15/16 at 12:00 Morphine Sulfate (morphine) 2 mg Q4H PRN IV SEVERE PAIN LEVEL 7-10; Start 08/15 at 12:00 Docusate Sodium (Colace) 100 mg Q12H PRN PO CONSTIPATION; Start 08/15/16 at 12: 00 Magnesium Hydroxide (Milk Of Mag) 30 ml DAILY PRN PO CONSTIPATION; Start at 12:00 Bisacodyl (Dulcolax Supp) 10 mg DAILY PRN [place] CONSTIPATION; Start 08/15/16 at 12 :00 Pantoprazole (Protonix Tab) 40 mg DAILY@06 PO Last administered on 08/17/16 06 :09; Admin Dose 40 MG; Start 08/16/16 at 06:00 Calcium Carbonate (Oyster Shell Calcium) 1.25 gm BID PO Last administered on 09:13; Admin Dose 1.25 GM; Start 08/15/16 at 21:00 Folic Acid (Folic Acid) 1 mg DAILY PO Last administered on 08/17/16 09:13; Admin Dose 1 MG; Start 08/16/16 at 09:00 Gabapentin 300 mg 300 mg QHS PO ; Start 08/15/16 at 21:00 Ferric Sodium Gluconate Complex/ Sodium Chloride (Ferrlecit/NS) 110 ml @ 100 mls/hr Q24H IVPB Last administered on 08/16/16 14:56; Admin Dose 100 MLS/HR; Start 08/16/16 at 14:30; Stop 08/18/16 at 15:35 CRISTI JUNG MD Aug 17, 2016 12:16
[2016-08-17] MEDS ORDERED: ASCORBIC ACID 500 MG TAB PO SCH (14:00)
--- NOTE | 2016-08-17 14:05 | PN ---
Date/Time of Note Date/Time of Note DATE: 08/17/16 TIME: 13:27 Assessment/Plan VTE Prophylaxis VTE Prophylaxis Intervention: SCD's Lines/Catheters IV Catheter Type (from Nrsg): Peripheral IV Urinary Cath still in place: No Assessment/Plan Assessment/Plan 61-year-old female with: 1. Generalized weakness, microcytic anemia, and significant weight loss over the past [address] Whittaker's assistance S/p EGD and colonoscopy and ileal ulcer bx pending and may need outpatient capsule endoscopy per Dr Whittaker IV Fe today and plan to discharge with 3 more doses outpatient D/c home today with Home Health for IV Fe and PT I have discussed case with Dr Rollins rheumatology and placed his consult note in chart, he will see patient as outpatient as all interventions he can offer form rheumatology standpoint are outpatient. 2. Multiple joint pain along with neck pain. CAT scan of the C-spine with no acute findings ESR 95 likely related to RA per Rheumatology. RF titer up, follow up with Dr Rollins as outpatient. 3. Hypothyroidism. Continue Synthroid. TFTS wnl. 4. Hypertension. off HCTZ while on IVF post colo prep Will resume at discharge if needed. Prophylaxis: Sequential compression devices to lower extremity for DVT prophylaxis, Protonix for GI prophylaxis. DISPOSITION: D/c home, f/u pathology and f/u with Dr Whittaker for outpatient capsule endoscopy and f/u with Dr Rollins. Home health PT and IV Fe Subjective 24 Hr Interval Summary Free Text/Dictation Patient doing better and remains stable today D/c home today and follow up with Dr Rollins and Dr Whittaker as outpatient Exam/Review of Systems Vital Signs Vitals Vital Signs Date Time Temp Pulse Resp B/P Pulse Ox O2 Delivery O2 Flow Rate FiO2 08/17/16 08:13 99.1 20 129/66 99 08/17/16 06:19 85 08/16/16 13:00 Room Air Intake and Output 08/16/16 08/16/16 08/17/16 15:00 23:00 07:00 Intake Total 1420 ml 1400 ml Output Total 400 ml Balance 1020 ml 1400 ml Exam Constitutional: alert, oriented, well developed Respiratory: clear to auscultation, normal air movement Cardiovascular: nl pulses, regular rate and rhythm Gastrointestinal: non-tender, soft Musculoskeletal: joint tenderness (multiple joints in setting of RA flare ), nl extremities to inspection Extremities: normal pulses Neurological: MANAGER CARE II-XII intact, nl mental status, nl speech, nl strength Results Result Diagram: 08/17/16 1132 08/16/16 0530 Results 24 hrs Laboratory Tests Test 08/16/16 16:52 08/17/16 11:32 Absolute Reticulocyte Count 0.036 Folate 13.3 Percent Reticulocyte Count 0.9 Vitamin B12 Level 821 Basophils # 0.0 Basophils % 0.4 Blood Morphology Comment Eosinophils # 0.2 Eosinophils % 3.0 Hematocrit 29.8 L Hemoglobin 9.7 L Lymphocytes # 1.3 Lymphocytes % 18.9 Mean Corpuscular Hemoglobin 25.9 L Mean Corpuscular Hemoglobin Concent 32.5 Mean Corpuscular Volume 79.7 L Mean Platelet Volume 7.6 Monocytes # 0.5 Monocytes % 8.0 Neutrophils # 4.8 Neutrophils % 69.7 Nucleated Red Blood Cells # 0.0 Nucleated Red Blood Cells % 0.0 Platelet Count 339 Red Blood Count 3.73 L Red Cell Distribution Width 15.4 H White Blood Count 6.9 Medications Medications Current Medications Sodium Chloride (NS) 1,000 ml @ 100 mls/hr Q10H IV Last administered on t 06:09; Admin Dose 100 MLS/HR; Start 08/15/16 at 11:34 Ondansetron HCl (Zofran Inj) 4 mg Q6H PRN IV NAUSEA AND/OR VOMITING; Start 05/22 at 12:00 Acetaminophen (Tylenol Tab) 650 mg Q6H PRN PO PAIN LEVEL 1-3 OR FEVER; Start at 12:00 Acetaminophen/ Hydrocodone Bitart ([place] (5/325)) 1 tab Q6H PRN PO MODERATE PAIN LEVEL 4-6; Start 08/15/16 at 12:00 Morphine Sulfate (morphine) 2 mg Q4H PRN IV SEVERE PAIN LEVEL 7-10; Start 08/15 at 12:00 Docusate Sodium (Colace) 100 mg Q12H PRN PO CONSTIPATION; Start 08/15/16 at 12: 00 Magnesium Hydroxide (Milk Of Mag) 30 ml DAILY PRN PO CONSTIPATION; Start at 12:00 Bisacodyl (Dulcolax Supp) 10 mg DAILY PRN [place] CONSTIPATION; Start 08/15/16 at 12 :00 Pantoprazole (Protonix Tab) 40 mg DAILY@06 PO Last administered on 08/17/16 06 :09; Admin Dose 40 MG; Start 08/16/16 at 06:00 Calcium Carbonate (Oyster Shell Calcium) 1.25 gm BID PO Last administered on 09:13; Admin Dose 1.25 GM; Start 08/15/16 at 21:00 Folic Acid (Folic Acid) 1 mg DAILY PO Last administered on 08/17/16 09:13; Admin Dose 1 MG; Start 08/16/16 at 09:00 Gabapentin 300 mg 300 mg QHS PO ; Start 08/15/16 at 21:00 Ferric Sodium Gluconate Complex/ Sodium Chloride (Ferrlecit/NS) 110 ml @ 100 mls/hr Q24H IVPB Last administered on 08/16/16 14:56; Admin Dose 100 MLS/HR; Start 08/16/16 at 14:30; Stop 08/18/16 at 15:35 CELIA COOPER Aug 17, 2016 13:37
--- NOTE | 2016-08-17 14:13 | PDOCDIS ---
Discharge Instructions CONDITION Patient Condition: Stable HOME CARE INSTRUCTIONS: Diet Instructions: Regular ACTIVITY: Activity Restrictions: No Restrictions FOLLOW UP/APPOINTMENTS Appointments Follow up with Dr Whittaker as outpatient for possible oupatient capsule endoscopy Follow up with Dr Kadeem Rlolins on SundayAugust 28 at 2 pm. Follow up with PCP within 1 week Follow up with for PT and IV fe infusion CELIA COOPER Aug 17, 2016 14:13
[2016-08-17] MEDS ORDERED: SOD62.5V IV (14:17)
[2016-08-17] MEDS ORDERED: ASC500 PO (14:17)
[2016-08-17] MEDS ORDERED: PANT40TA4 PO (14:17)
[2016-08-17] MEDS: SOD FERRIC GLUC COMPLX 125 MG in SOD CHLORIDE 0.9% 100 ML IVPB SCH (14:23)
== END 2016-08-17 17:00 | disposition home or self-care (01) ==
LOC: E/R 08:20 → MS2 12:06
PROVIDERS: ADMIT Internal Medicine; ATTEND Internal Medicine
DX: K29.50 Unspecified chronic gastritis without bleeding (principal); K52.9 Noninfective gastroenteritis and colitis, unspecified; K44.9 Diaphragmatic hernia without obstruction or gangrene; K63.3 Ulcer of intestine; M06.9 Rheumatoid arthritis, unspecified; E03.9 Hypothyroidism, unspecified; M85.80 Other specified disorders of bone density and structure, unspecified site; I10 Essential (primary) hypertension; D64.9 Anemia, unspecified; R53.1 Weakness; M54.2 Cervicalgia; M81.0 Age-related osteoporosis without current pathological fracture; R63.4 Abnormal weight loss; Z68.25 Body mass index [BMI] 25.0-25.9, adult; Z90.710 Acquired absence of both cervix and uterus
CPT/HCPCS: 36415; 43239; 45380; 71010; 72125; 74176; 80053; 81001; 82607; 82728; 82746; 83540; 83690; 83735; 84100; 84439; 84443; 84484; 85025; 85045; 85610; 85651; 85730; 86430; 88305; 88312; 93005; 93306; J2250; J2916; J7030; J7040; Z7500; Z7502; Z7610; 81003; 99217; G0378